=== PATIENT | female | born 1935 | race American Indian/Alaskan Native ===

== ENCOUNTER 2016-12-24 09:35 | Emergency (ER) | payer MEDICARE ==
[2016-12-24 09:51] VITALS: BMI 25.2
[2016-12-24 09:55] VITALS: TEMP 98.3
--- NOTE | 2016-12-24 11:31 | C.PDOC ---
History Of Present Illness 81 y/o female presents to ED with complaints of persistent cough for 3 weeks. Patient states symptoms went away last week for a couple of days then returned. Patient reports cough is productive with yellow sputum and denies fever, n/v/d, sob, cp or any other complaints at this time. Time Seen by Provider: 12/24/16 10:17 Chief Complaint (Nursing): ENT Problem History Per: Patient History/Exam Limitations: None Onset/Duration Of Symptoms: Days Current Symptoms Are (Timing): Still Present Past Medical History Reviewed: Historical Data, Nursing Documentation, Vital Signs Vital Signs: Last Vital Signs Temp 98.3 F 12/24/16 09:52 Pulse 69 12/24/16 12:47 Resp 18 12/24/16 12:47 BP 142/78 12/24/16 12:47 Pulse Ox 98 12/24/16 12:47 - Medical History PMH: Anemia, Colonic Polyps, Fractures (RIGHT FOOT WITH PIN), HTN, Hypercholesterolemia, Hypothyroidism Surgical History: Endoscopy Family History: States: Unknown Family Hx - Social History Hx Alcohol Use: No Hx Substance Use: No - Immunization History Hx Tetanus Toxoid Vaccination: Yes Hx Influenza Vaccination: Yes Hx Pneumococcal Vaccination: Yes Review Of Systems Except As Marked, All Systems Reviewed And Found Negative. Constitutional: Negative for: Fever Cardiovascular: Negative for: Chest Pain Respiratory: Positive for: Cough. Negative for: Shortness of Breath Gastrointestinal: Negative for: Nausea, Vomiting, Diarrhea Skin: Negative for: Rash Physical Exam - Physical Exam Appears: Non-toxic, No Acute Distress Skin: Normal Color, Warm Head: Atraumatic, Normacephalic Oral Mucosa: Moist Throat: Normal Chest: Symmetrical Cardiovascular: Rhythm Regular, No Murmur Respiratory: No Rales, Rhonchi (Left side Rhonci ), No Wheezing Gastrointestinal/Abdominal: Soft, No Tenderness, No Guarding, No Rebound Neurological/Psych: Oriented x3, Normal Speech, Normal Cognition ED Course And Treatment O2 Sat by Pulse Oximetry: 100 (RA) Pulse Ox Interpretation: Normal Disposition - Disposition Referrals: Dianne Mistry, [Non-Staff] - Disposition: HOME/ ROUTINE Disposition Time: 12:05 Condition: GOOD Additional Instructions: Thank you for letting us take care of you today. Your provider was Dr. Palomo. You were treated for an upper respiratory infection. The emergency medical care you received today was directed at your acute symptoms. If you were prescribed any medication, please fill it and take as directed. It may take several days for your symptoms to resolve. Return to the Emergency Department if your symptoms worsen, do not improve, or if you have any other problems. Please contact your doctor or call one of the physicians/clinics you have been referred to that are listed on the Patient Visit Information form that is included in your discharge packet. Bring any paperwork you were given at discharge with you along with any medications you are taking to your follow up visit. Our treatment cannot replace ongoing medical care by a primary care provider (PCP) outside of the emergency department. Thank you for allowing the [facility] team to be part of your care today. Follow up with your doctor in 2-3 days for re-evaluation of your cough. Prescriptions: levoFLOXacin [Levaquin] 750 mg PO DAILY #5 tab Instructions: Upper Respiratory Infection (ED) - Clinical Impression Clinical Impression: Upper respiratory infection - Scribe Statement The provider has reviewed the documentation as recorded by the Yennifer Chamberlain All medical record entries made by the Divinaibzarha were at my direction and personally dictated by me. I have reviewed the chart and agree that the record accurately reflects my personal performance of the history, physical exam, medical decision making, and the department course for this patient. I have also personally directed, reviewed, and agree with the discharge instructions and disposition.
--- NOTE | 2016-12-24 12:04 | RAD ---
HISTORY: r/o infiltrate (cough) COMPARISON: No prior. TECHNIQUE: Chest PA and lateral FINDINGS: LUNGS: Diffuse increased interstitial lung markings. Patchy bibasilar airspace opacities. Small nodular density at the left lung base. PLEURA: No significant pleural effusion identified. No pneumothorax apparent. CARDIOVASCULAR: Calcification at the aortic knob. OSSEOUS STRUCTURES: Degenerative changes in the spine and shoulders. VISUALIZED UPPER ABDOMEN: Normal. OTHER FINDINGS: None. IMPRESSION: Diffuse increased interstitial lung markings. Patchy bibasilar airspace opacities. Small nodular density at the left lung base.
[2016-12-24 12:49] VITALS: BP 142/78; PULSE 69; RESP 18
[2016-12-24 18:22] VITALS: O2SAT 100
== END 2016-12-24 12:48 | disposition home or self-care (01) ==
LOC: C.ER 09:35
DX: J06.9 Acute upper respiratory infection, unspecified (principal)

== ENCOUNTER 2018-11-11 08:39 | Day surgery (SDC) | payer MEDICARE ==
[2018-11-11 09:16] VITALS: BMI 24.1
[2018-11-11 09:21] VITALS: RESP 20
[2018-11-11] MEDS ORDERED: Propofol 10 mg/ml Inj (20 ML) ONE ×3 (10:30→11:19)
[2018-11-11] MEDS ORDERED: Lactated Ringer's 500 ML IV ONE (10:31)
[2018-11-11 10:36] VITALS: O2SAT 100
[2018-11-11] MEDS ORDERED: EPINEPHrine 1 mg/ml (1:1000) Inj IV ONE (11:00)
[2018-11-11 12:35] VITALS: PULSE 76
[2018-11-11 12:38] VITALS: BP 139/67; TEMP 97
== END 2018-11-11 12:37 | disposition home or self-care (01) ==
LOC: C.ENDO 08:39
PROVIDERS: ATTEND Internal Medicine Gastroenterology
DX: D12.2 Benign neoplasm of ascending colon (principal); Z86.010 Personal history of colon polyps; R63.4 Abnormal weight loss; K57.30 Diverticulosis of large intestine without perforation or abscess without bleeding; K64.0 First degree hemorrhoids; K31.7 Polyp of stomach and duodenum; E11.9 Type 2 diabetes mellitus without complications; E78.5 Hyperlipidemia, unspecified; E03.9 Hypothyroidism, unspecified; K29.41 Chronic atrophic gastritis with bleeding
CPT/HCPCS: 43251; 43255; 45380; 82948; 88305; 88313; 88342; J0171; J2001; J2704; J7120